=== PATIENT | female | born 1995 | race Caucasian/White ===

== ENCOUNTER → 2017-09-21 | Outpatient (CLI) | payer OTHER ==
--- NOTE | 2017-09-21 16:32 | RAD ---
Lumbar spine, 3 views, 09/21/2017: History: Low back pain The vertebral heights and intervertebral disc spaces are well-maintained. No fracture or dislocation is identified. The paraspinous soft tissues are unremarkable. IMPRESSION: No significant lumbar spine abnormality is detected.
== END | disposition home or self-care (01) ==
LOC: RAD 15:58
PROVIDERS: ATTEND Nurse Practitioner Family
DX: M54.5 Low back pain (principal)
CPT/HCPCS: 72100